=== PATIENT | female | born 1945 | race Caucasian/White ===

== ENCOUNTER 2023-07-21 14:23 | Emergency (ER) | payer MEDICARE, SELFPAY ==
[2023-07-21] VITALS (9 sets, daily range): BP systolic 169–216; BP diastolic 79–101
[2023-07-21 16:11] LABS: % Basophils 0.3 % (0-2); % Eosinophils 1.1 % (0-6); % Immature Granulocytes 0.3 % (0-0.5); % Lymphocytes 22.9 % (20.5-51.1); % Monocytes 8.4 % (1.7-9.3); Absolute Eosinophils 0.1 10^3/uL (0-0.7); Absolute Lymphocytes 1.5 10^3/uL (1.2-3.4); Absolute Monocytes 0.6 10^3/uL (0.1-0.6); Absolute Neutrophils 4.4 10^3/uL (1.4-6.5); Hematocrit 32.8 % (37.0-47.0); Hemoglobin 11.7 g/dL (12.0-16.0); Mean Corp Hgb Conc. 35.7 g/dL (33.0-37.0); Mean Corpuscular Volume 86.8 fL (81.0-99.0); Mean Platelet Volume 10.3 fL (7.4-10.4); Nucleated Red Blood Cells % 0 %; Platelet Count 213 10^3/uL (130-400); Red Blood Cell Count 3.78 10^6/uL (4.20-5.40); Red Cell Dist. Width 12.5 % (11.5-14.5); White Blood Cell Count 6.6 10^3/uL (4.8-10.8)
[2023-07-21 16:23] LABS: ALT (SGPT) 19 U/L (0-35); AST (SGOT) 32 U/L (14-36); Albumin 4.1 g/dl (3.5-5.0); Alkaline Phosphatase 76 U/L (38-126); Blood Urea Nitrogen 16 mg/dl (7-17); Calcium 9.3 mg/dl (8.4-10.2); Carbon Dioxide 24 mmol/L (22-30); Chloride 103 mmol/L (98-107); Glucose 90 mg/dl (70-99); Lipase 79 U/L (23-300); Potassium 3.8 mmol/L (3.5-5.1); Sodium 132 mmol/L (135-145); Total Bilirubin 0.7 mg/dl (0.2-1.3); Total Protein 6.9 g/dl (6.3-8.2); eGFR > 60.00
[2023-07-21 16:38] LABS: Troponin I < 0.012 ng/ml
[2023-07-21] MEDS: MORPHINE SULFATE 2 MG IV (16:55)
[2023-07-21] MEDS: MAALOX 40 PO (16:55)
[2023-07-21] MEDS: PROTONIX IV 40 MG IV (16:56)
--- NOTE | 2023-07-21 17:10 | ED.GENMED ---
History of Present Illness
<Tayler Rogel PA-C - Last Filed: 07/23/23 14:55>
General
Chief Complaint: Abdominal Symptoms
Source: patient
Exam Limitations: none
Time Seen by Provider: 07/21/23 15:58
Nursing documentation reviewed up to this point in time: agreed with
Travel History
Have you had any contact with someone who has COVID-19?: No
Do you have any symptoms of coronavirus? Fever > 100 degrees, chills, cough, shortness of breath, sore throat, loss of taste or smell, muscle aches, or headache?: No
History of Present Illness
History of Present Illness:
pt is a 77 y/o F with h/o afib s/p ablation, GERD, ulcers, htn
here with epigastric pain x 10 days which feels like a gnawing sharp feeling that she was attributing to reflux/gastritis. pt has had endoscopies in the past, last was 4 years ago and she says she has been told then that it was normal
pt has had some nausea but the pain is persistent and better with eating
sometimes the pain wraps around to her back
she was at yesterday and they told her she should have labs and see GI and maybe an US to eval for gb
there, her BP was normal
she sys she has previously had issues with her BPs in the past but not for a while
took her lisinopril today
exertion dosen't make her pain worse, no vomiting or black stool, no diarrhea
pt has seen cards int he past, ,has no known cardiac disease
pt says last night into today the pain is worse which is what brought her in.
Past History
<aTyler Rogel PA-C - Last Filed: 07/23/23 14:55>
Past History
ED Past Medical History: Arrthythmia (afib s/p ablation), GERD, HTN, Hypothyroidism and Other (PUD, hiatal hernia)
ED Past Surgical History: Cardiac (A. fib ablation), Gynecological (Tubal ligation), Tonsilectomy and Other (Hernia repair)
Patient has exhibited threatening behavior?: No
Social History
Tobacco: Non-smoker
Alcohol: Occasional
Drug: None
Personal:
Living: with family
Employment: Employed (Cleaning service)
Family History
Family History: Hypertension
Review of Systems
<Tayler Rogel PA-C - Last Filed: 07/23/23 14:55>
Review of Systems
Allergies reviewed?: Yes
All Other Systems: Not applicable
Phy Exam
<Tayler Rogel PA-C - Last Filed: 07/23/23 14:55>
Physical Exam
Physical Exam:
GENERAL: Alert , in no apparent distress
EYE: pupils equal and reactive
NECK: Supple
ENT: o/p clr, mmm.
CARDIAC: Regular rate and rhythm .
LUNGS: Clear breath sounds bilaterally, no acute respiratory distress, no wheezes/rales/rhonchi
ABDOMEN: Soft, no significant epigastric tendrness, neg cary's sign, no r/g, no cvat, normal bowel sounds
NEUROLOGICAL: Alert and oriented, no focal neuro deficits
SKIN: Warm and dry, skin intact.
MUSCULOSKELETAL: No edema, well perfused. neg elizabeth's sign
PSYCH: Normal and appropriate interaction.
Course
<Tayler Rogel PA-C - Last Filed: 07/23/23 14:55>
Orders/Labs/Results
Orders:
Orders
07/21/23 14:28
EKG [Electrocardiogram (*1)] Urgent
Reason for Study: Abdominal Pain
EKG- Treatment ONCE
07/21/23 16:04
CBC/With Diff [Complete Blood Count/With Diff] Urgent
CMP [Comprehensive Metabolic Panel] Urgent
Lipase Urgent
Troponin I Urgent
07/21/23 16:42
CT Chest/abd/pelvis Angio W/wo Urgent
Comment:
Reason For Exam: severe epigastric pain, ,backp ain, hypertensive
Mag Hydrox/Al Hydrox/Simeth [Maalox] 30 ml Phenobarb/Hyoscy/Atropine/Scop [] 10 ml PO NOW
Morphine Sulfate 2 mg IV NOW STA
Pantoprazole [Protonix IV] 40 mg IV NOW STA
07/21/23 16:51
Mag Hydrox/Al Hydrox/Simeth [Maalox] 30 ml .ROUTE .STK-MED ONE
Phenobarb/Hyoscy/Atropine/Scop [] 10 ml .ROUTE .STK-MED ONE
07/21/23 19:14
HydrALAZINE [Apresoline] 10 mg IV NOW STA
Abnormal Lab Results
07/21/23
16:04
RBC 3.78 L 10^6/uL
(4.20-5.40)
Hgb 11.7 L g/dL
(12.0-16.0)
Hct 32.8 L %
(37.0-47.0)
Sodium 132 L mmol/L
(135-145)
07/21/23 16:04
07/21/23 16:04
Vital Signs
Initial and Last Documented VS:
Initial Vital Signs
Temp Pulse Resp BP Pulse Ox
98.3 F 67 16 175/91 98
07/21/23 14:25 07/21/23 14:25 07/21/23 14:25 07/21/23 14:25 07/21/23 14:25
Last Documented Vital Signs
Temp Pulse Resp BP Pulse Ox
98.3 F 59 17 171/79 97
07/21/23 14:25 07/21/23 18:04 07/21/23 18:04 07/21/23 20:00 07/21/23 20:15
<Marquitacheikh Peterson, REGIONAL ENGAGEMENT CONSULTANT - Last Filed: 07/21/23 22:41>
Orders/Labs/Results
Orders:
Orders
07/21/23 14:28
EKG [Electrocardiogram (*1)] Urgent
Reason for Study: Abdominal Pain
EKG- Treatment ONCE
07/21/23 16:04
CBC/With Diff [Complete Blood Count/With Diff] Urgent
CMP [Comprehensive Metabolic Panel] Urgent
Lipase Urgent
Troponin I Urgent
07/21/23 16:42
CT Chest/abd/pelvis Angio W/wo Urgent
Comment:
Reason For Exam: severe epigastric pain, ,backp ain, hypertensive
Mag Hydrox/Al Hydrox/Simeth [Maalox] 30 ml Phenobarb/Hyoscy/Atropine/Scop [] 10 ml PO NOW
Morphine Sulfate 2 mg IV NOW STA
Pantoprazole [Protonix IV] 40 mg IV NOW STA
07/21/23 16:51
Mag Hydrox/Al Hydrox/Simeth [Maalox] 30 ml .ROUTE .STK-MED ONE
Phenobarb/Hyoscy/Atropine/Scop [] 10 ml .ROUTE .STK-MED ONE
07/21/23 19:14
HydrALAZINE [Apresoline] 10 mg IV NOW STA
Abnormal Lab Results
07/21/23
16:04
RBC 3.78 L 10^6/uL
(4.20-5.40)
Hgb 11.7 L g/dL
(12.0-16.0)
Hct 32.8 L %
(37.0-47.0)
Sodium 132 L mmol/L
(135-145)
07/21/23 16:04
07/21/23 16:04
Vital Signs
Initial and Last Documented VS:
Initial Vital Signs
Temp Pulse Resp BP Pulse Ox
98.3 F 67 16 175/91 98
07/21/23 14:25 07/21/23 14:25 07/21/23 14:25 07/21/23 14:25 07/21/23 14:25
Last Documented Vital Signs
Temp Pulse Resp BP Pulse Ox
98.3 F 59 17 171/79 97
07/21/23 14:25 07/21/23 18:04 07/21/23 18:04 07/21/23 20:00 07/21/23 20:15
<Tayler Rogel PA-C - Last Filed: 07/23/23 14:55>
MDM/Problems Addressed
Differential Diagnosis Includes:
Dissection, gastritis, peptic ulcer disease, ACS
MDM/Problems Addressed:
77-year-old female with history of hypertension presents with epigastric pain for the last 10 days, it is a gnawing pain that sometimes goes through to her back. She feels better with eating. She has had previous endoscopies but not recently that
she says was actually normal. She does not recall that she had diagnosis of a peptic ulcer before. Patient has tried some tfzn-wnd-gorojdu remedies without relief. She took her lisinopril today but she is hypertensive on arrival, 200/100. Her
EKG is nonischemic but does have a subtle ST nonspecific biphasic T wave in V2 new from previous. Patient has a negative troponin effectively ruling out ACS given her symptoms have been ongoing for days. Because of her hypertension and pain she
had a dissection study. 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 The recommendation is to have this surveilled in 6 to 12 months. She will be given a vascular for follow-up.
In the meantime patient did have a brief reprieve of her blood pressure being down to 170/70 but then it rebounded to 210/90 again. Patient will be given a dose of hydralazine. If she does not improve will be admitted for hypertensive urgency.
If it does improve she could be discharged. Protonix daily, GI follow-up. No concern for bleeding ulcer, her hemoglobin is 7.7 and her BUN is normal. She is not reporting any black stool. Signed out to Gabby peterson pending repeat blood pressure
<Marquita Peterson REGIONAL ENGAGEMENT CONSULTANT - Last Filed: 07/21/23 22:41>
MDM/Problems Addressed
MDM/Problems Addressed:
77-year-old female with history of hypertension presents with epigastric pain for the last 10 days, it is a gnawing pain that sometimes goes through to her back. She feels better with eating. She has had previous endoscopies but not recently that
she says was actually normal. She does not recall that she had diagnosis of a peptic ulcer before. Patient has tried some hdnd-krn-ulvtepx remedies without relief. She took her lisinopril today but she is hypertensive on arrival, 200/100. Her
EKG is nonischemic but does have a subtle ST nonspecific biphasic T wave in V2 new from previous. Patient has a negative troponin effectively ruling out ACS given her symptoms have been ongoing for days. Because of her hypertension and pain she
had a dissection study. 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 The recommendation is to have this surveilled in 6 to 12 months. She will be given a vascular for follow-up.
In the meantime patient did have a brief reprieve of her blood pressure being down to 170/70 but then it rebounded to 210/90 again. Patient will be given a dose of hydralazine. If she does not improve will be admitted for hypertensive urgency.
If it does improve she could be discharged. Protonix daily, GI follow-up. No concern for bleeding ulcer, her hemoglobin is 7.7 and her BUN is normal. She is not reporting any black stool. Signed out to Gabby peterson pending repeat blood pressure
07/21/20232027 PM
Most recent blood pressure was 169/83, and 171/79, still high but improving. She will f/u with PCP tomorrow
<Marquita Peterson REGIONAL ENGAGEMENT CONSULTANT - Last Filed: 07/21/23 22:41>
*Critical Care Note
Total Time (30-74mins, 75-104mins- exclusive of procedures): Not Applicable
ED Attending Note
<Tayler Rogel PA-C - Last Filed: 07/23/23 14:55>
-
Portions of this chart may have been created with voice recognition software.� Occasional wrong word or��sound alike� substitutions may have occurred due to the inherent limitations of voice recognition software.
Discharge Plan
Departure
Patient Disposition: Home (Routine Discharge)
Date of Disposition: 07/21/23
Time of Disposition: 20:31
Patient with high blood pressure during this ER visit?: Yes
Condition: Fair
Covid-19: Not Applicable
Discharge Problem:
Abdominal pain, epigastric, Hypertension
Instructions: Abdominal Pain, Adult ED, BLOOD PRESSURE
Prescriptions:
New
pantoprazole [Protonix] 20 mg tablet,delayed release (DR/EC)
20 mg PO DAILY Qty: 20 0RF
No Action
levothyroxine 75 MCG tablet
75 mcg PO DAILY
B-complex with vitamin C 1 CAPLET tablet
1 cap PO DAILY
lisinopril 10 MG tablet
20 mg PO DAILY
ibuprofen 200 MG tablet
200 mg PO DAILYPRN PRN (Reason: MILD PAIN)
biotin 1 mg Capsule
1 mg PO DAILY
Referrals:
Jackie Sarah MD [Active] - Follow up in 5-7 days (gi)
Luis Sanders III, MD [Active] - Follow up in 1 week (vascular for follow up of the renal artery aneurysm)
Jong Felix MD [Family Provider] -
Activity Restrictions/Additional Instructions:
Were not sure the cause of your abdominal pain but it could be an ulcer. Take Protonix 20 mg on an empty stomach 45 minutes before eating or drinking in the morning, you can take it with a large glass of water.
Follow-up with GI, call for an appointment.
Return for severe worsening of epigastric pain, black stool, vomiting, fevers or chills, chest pain or shortness of breath. Your blood pressure was extremely high today. We gave you a dose of medication to help with this. Please be sure to
follow-up with your family doctor tomorrow regarding your blood pressure. Return for any concerns. Incidentally on your CAT scan you had a small left renal artery aneurysm which measures 1.2 cm x 0.9 cm x 0.9 cm. The recommendation is to have
this followed up in 6 to 12 months with a repeat CAT scan. Please call the vascular surgeon to follow-up with him and he will take care of that. Return for any concerns
Interventions
Interventions:
*Risk Screen - Suicide Last Done: 07/21/23 14:25
*General Assessment Last Done: 07/21/23 14:25
*Neglect/Abuse Screening Last Done: 07/21/23 14:25
ED- Fall Risk Assessment Last Done: 07/21/23 15:51
*Nursing Disposition Last Done: 07/21/23 20:57
LR-Xuoomn-Tddhlnxxky Assessment Last Done: 07/21/23 15:51
Discharge Date and Time
Discharge Date/Time: 07/21/23 20:58
[2023-07-21] MEDS: APRESOLINE 10 MG IV (19:36)
== END 2023-07-21 20:58 | disposition home or self-care (01) ==
LOC: EMR 14:23
PROVIDERS: Physician Assistant; EMERGENCY PHYSICIAN Emergency Medicine; FAMILY PHYSICIAN Family Medicine
DX: R10.13 Epigastric pain (principal); R11.0 Nausea; M54.9 Dorsalgia, unspecified; I10 Essential (primary) hypertension; I72.2 Aneurysm of renal artery; I48.91 Unspecified atrial fibrillation; K21.9 Gastro-esophageal reflux disease without esophagitis; E03.9 Hypothyroidism, unspecified; H40.9 Unspecified glaucoma; Z85.828 Personal history of other malignant neoplasm of skin; Z88.1 Allergy status to other antibiotic agents; Z88.2 Allergy status to sulfonamides
CPT/HCPCS: 99285; 96374; 96375 ×2; 71275; 74174; 80053; 83690; 84484; 85025; 93005; Q9967

== ENCOUNTER → 2023-08-14 15:56 | Outpatient (REF) | payer MEDICARE, SELFPAY | LOC: WDC 15:56 | PROVIDERS: ATTENDING PHYSICIAN Nurse Practitioner Family | DX: Z12.31 Encounter for screening mammogram for malignant neoplasm of breast (principal) | CPT/HCPCS: 77063; 77067 ==

== ENCOUNTER → 2023-09-16 06:34 | Day surgery (SDC) | payer MEDICARE, SELFPAY | LOC: GI 06:34 | PROVIDERS: ATTENDING PHYSICIAN Internal Medicine Gastroenterology | DX: K21.00 Gastro-esophageal reflux disease with esophagitis, without bleeding (principal); K44.9 Diaphragmatic hernia without obstruction or gangrene; K31.89 Other diseases of stomach and duodenum; K31.7 Polyp of stomach and duodenum; R10.13 Epigastric pain | CPT/HCPCS: 43239; 88305; 88342 ==

== ENCOUNTER 2023-11-03 10:35 | Emergency (ER) | payer MEDICARE, SELFPAY ==
[2023-11-03 10:39] VITALS: BP 141/74
[2023-11-03 11:21] LABS: % Basophils 0.4 % (0-2); % Eosinophils 1.5 % (0-6); % Immature Granulocytes 0.2 % (0-0.5); % Monocytes 9.4 % (1.7-9.3); % Neutrophils 65.5 % (42.2-75.2); Absolute Eosinophils 0.1 10^3/uL (0-0.7); Absolute Lymphocytes 1.2 10^3/uL (1.2-3.4); Absolute Monocytes 0.5 10^3/uL (0.1-0.6); Absolute Neutrophils 3.4 10^3/uL (1.4-6.5); Hematocrit 34.3 % (37.0-47.0); Hemoglobin 12.1 g/dL (12.0-16.0); Mean Corp Hgb Conc. 35.3 g/dL (33.0-37.0); Mean Corpuscular Hgb 30.6 pg (27.0-31.0); Mean Corpuscular Volume 86.8 fL (81.0-99.0); Mean Platelet Volume 10.9 fL (7.4-10.4); Nucleated Red Blood Cells % 0 %; Platelet Count 214 10^3/uL (130-400); Red Blood Cell Count 3.95 10^6/uL (4.20-5.40); Red Cell Dist. Width 12.7 % (11.5-14.5); White Blood Cell Count 5.2 10^3/uL (4.8-10.8)
[2023-11-03 11:24] LABS: Urine Albumin Negative (Neg - Trace); Urine Bilirubin Negative (Negative); Urine Character Clear (Clear); Urine Color Yellow; Urine Glucose Negative (Negative); Urine Ketone Negative (Negative); Urine Leukocyte Negative (Negative); Urine Nitrite Negative (Negative); Urine Occult Blood Negative (Negative); Urine Specific Gravity 1.015 (<1.030); Urine Urobilinogen Negative (Neg - 1+)
[2023-11-03 11:59] LABS: ALT (SGPT) 19 U/L (0-35); AST (SGOT) 33 U/L (14-36); Albumin 4.1 g/dl (3.5-5.0); Alkaline Phosphatase 56 U/L (38-126); Blood Urea Nitrogen 21 mg/dl (7-17); Calcium 10.2 mg/dl (8.4-10.2); Carbon Dioxide 23 mmol/L (22-30); Chloride 101 mmol/L (98-107); Glucose 107 mg/dl (70-99); Potassium 4.2 mmol/L (3.5-5.1); Sodium 132 mmol/L (135-145); Total Bilirubin 0.7 mg/dl (0.2-1.3); eGFR > 60.00
--- NOTE | 2023-11-03 12:26 | ED.GENMED ---
History of Present Illness
<Elizabeth Cerda PA-C - Last Filed: 11/03/23 14:43>
General
Chief Complaint: Urinary Symptoms
Source: patient
Exam Limitations: none
Time Seen by Provider: 11/03/23 12:16
Nursing documentation reviewed up to this point in time: agreed with
Travel History
Have you had any contact with someone who has COVID-19?: No
Do you have any symptoms of coronavirus? Fever > 100 degrees, chills, cough, shortness of breath, sore throat, loss of taste or smell, muscle aches, or headache?: No
History of Present Illness
History of Present Illness:
77-year-old G3, P3 female with a history of recurrent UTIs, A-fib, hypertension, hypothyroidism presenting emergency department today with concerns of vaginal pain and clearish white vaginal discharge for the past few weeks. She also has burning
with urination associated with this. Patient denies any itching, any abdominal pain, any pelvic pain, any fevers or chills, any vomiting. Patient states that she originally saw her urologist for this issue and they did do an external physical exam
and started her on a course of topical estrogen therapy. Patient states that her symptoms got significantly worse after this. Saw her primary who did a urinalysis which at the time was positive for urinary tract infection and she was treated for
this with an antibiotic. Patient that despite this, symptoms persisted and patient then saw urgent care in which she had another pelvic exam done and patient was tested for BV and is still waiting the results. She was started on a course of
topical metronidazole which she has been on for the past few days. Patient states her symptoms still do not improve. Of note, patient states that her symptoms all started after inserting a toy into her vagina. She only used this once. Patient
denies any chance of sexually transmitted infection.
Past History
<Elizabeth Cerda PA-C - Last Filed: 11/03/23 14:43>
Past History
ED Past Medical History: Arrthythmia (afib s/p ablation), GERD, HTN, Hypothyroidism and Other (PUD, hiatal hernia)
ED Past Surgical History: Cardiac (A. fib ablation), Gynecological (Tubal ligation), Tonsilectomy and Other (Hernia repair)
Patient has exhibited threatening behavior?: No
Social History
Tobacco: Non-smoker
Alcohol: Occasional
Drug: None
Personal:
Living: with family
Employment: Employed ([employer] service)
Family History
Family History: Hypertension
Review of Systems
<BONI Callaway Last Filed: 11/03/23 14:43>
Review of Systems
All Other Systems: ROS reviewed and negative except as documented in HPI and ROS
Phy Exam
<BONI Callaway Last Filed: 11/03/23 14:43>
Physical Exam
Physical Exam:
General: Patient is well appearing and in no acute distress; non-toxic
Skin: Warm and dry, no rashes or lesions
Head: Normocephalic, atraumatic
Eyes: Sclera non-icteric. EOMs intact.
Cardiac: Regular rate
Peripheral Vascular: No lower extremity swelling or edema
Pulm: Normal respiratory effort
Abdomen: No abdominal tenderness, no adnexal masses, no adnexal tenderness to palpation
Genitourinary: Mild vulvar erythema noted with no significant swelling, no lesions or excoriations on the external genitalia. Thick white discharge noted at the vaginal introitus. Vaginal mucosa pink and moist with no ulcerations or lesions,
cervix visualized with no cervical lesions or cervical motion tenderness.
Neuro: CN II-XII intact, no focal neurologic deficits.
Psychiatric: Appropriate mood and affect.
Course
<BONI Callaway Last Filed: 11/03/23 14:43>
Orders/Labs/Results
Orders:
Orders
11/03/23 10:43
Complete Blood Count/With Diff Urgent
Comprehensive Metabolic Panel Urgent
11/03/23 11:05
Urinalysis Reflex To Culture Urgent
Date Specimen was Collected: 11/03/23
Time Specimen was Collected: 10:41
11/03/23 13:52
Loretta/Yeast Culture Urgent
LYLE Source: Vagina
Specimen Description:
Date Specimen was Collected: 11/03/23
Time Specimen was Collected: 13:51
Genital Culture Urgent
LYLE Source: Vagina
Specimen Description:
Date Specimen was Collected: 11/03/23
Time Specimen was Collected: 13:51
Abnormal Lab Results
11/03/23
10:43
RBC 3.95 L 10^6/uL
(4.20-5.40)
Hct 34.3 L %
(37.0-47.0)
MPV 10.9 H fL
(7.4-10.4)
Monocytes % 9.4 H %
(1.7-9.3)
Sodium 132 L mmol/L
(135-145)
BUN 21 H mg/dl
(7-17)
Glucose 107 H mg/dl
(70-99)
11/03/23 10:43
11/03/23 10:43
Vital Signs
Initial and Last Documented VS:
Initial Vital Signs
Temp Pulse Resp BP Pulse Ox
98.2 F 66 16 141/74 99
11/03/23 10:39 11/03/23 10:39 11/03/23 10:39 11/03/23 10:39 11/03/23 10:39
Last Documented Vital Signs
Temp Pulse Resp BP Pulse Ox
98.2 F 76 16 181/91 99
11/03/23 10:39 11/03/23 14:48 11/03/23 10:39 11/03/23 14:48 11/03/23 10:39
<Jose Franco MD - Last Filed: 11/03/23 15:39>
Orders/Labs/Results
Orders:
Orders
11/03/23 10:43
Complete Blood Count/With Diff Urgent
Comprehensive Metabolic Panel Urgent
11/03/23 11:05
Urinalysis Reflex To Culture Urgent
Date Specimen was Collected: 11/03/23
Time Specimen was Collected: 10:41
11/03/23 13:52
Loretta/Yeast Culture Urgent
LYLE Source: Vagina
Specimen Description:
Date Specimen was Collected: 11/03/23
Time Specimen was Collected: 13:51
Genital Culture Urgent
LYLE Source: Vagina
Specimen Description:
Date Specimen was Collected: 11/03/23
Time Specimen was Collected: 13:51
Abnormal Lab Results
11/03/23
10:43
RBC 3.95 L 10^6/uL
(4.20-5.40)
Hct 34.3 L %
(37.0-47.0)
MPV 10.9 H fL
(7.4-10.4)
Monocytes % 9.4 H %
(1.7-9.3)
Sodium 132 L mmol/L
(135-145)
BUN 21 H mg/dl
(7-17)
Glucose 107 H mg/dl
(70-99)
11/03/23 10:43
11/03/23 10:43
Vital Signs
Initial and Last Documented VS:
Initial Vital Signs
Temp Pulse Resp BP Pulse Ox
98.2 F 66 16 141/74 99
11/03/23 10:39 11/03/23 10:39 11/03/23 10:39 11/03/23 10:39 11/03/23 10:39
Last Documented Vital Signs
Temp Pulse Resp BP Pulse Ox
98.2 F 76 16 181/91 99
11/03/23 10:39 11/03/23 14:48 11/03/23 10:39 11/03/23 14:48 11/03/23 10:39
<Elizabeth Cerda PA-C - Last Filed: 11/03/23 14:43>
MDM/Problems Addressed
Differential Diagnosis Includes:
vaginal candidiasis, contact dermatitis, allergic dermatitis, atrophic vaginitis, lichen sclerosis
MDM/Problems Addressed:
Vaginal pain and discharge
Chronic conditions affecting care:
Atrial fibrillation, skin cancer, recurrent UTIs
<Elizabeth Cerda PA-C - Last Filed: 11/03/23 14:43>
*Pulse Oximetry
Patient hypoxic: no
*Critical Care Note
Total Time (30-74mins, 75-104mins- exclusive of procedures): Not Applicable
Data Reviewed
Review of Other/Old Records Reveals: Records (Reviewed ER physician documentation from 07/21/2023, ER physician documentation from 07/24/2021)
Source: patient and records
<Elizabeth Cerda PA-C - Last Filed: 11/03/23 14:43>
Patient Management
Escalation/DeEscalation of care consider admission/obs:
77-year-old G3, P3 female with a history of recurrent UTIs, A-fib, hypertension, hypothyroidism presenting emergency department today with concerns of vaginal pain and clearish white vaginal discharge for the past few weeks. Patient has seen
multiple providers for this issue and has been on various regimens including 1 dose of oral Diflucan, intravaginal metronidazole, and an oral antibiotic. Patient is waiting on vaginal swab results from urgent care. Patient's PLUMBER ASSISTANT provider retired
and she currently does not have a PLUMBER ASSISTANT. She has no pelvic pain, abdominal pain, nausea, vomiting, fevers. On exam, there is mild vulvar erythema but no significant findings to suggest lichen sclerosus or possibly a contact dermatitis. Discharge
consistent with possible infectious etiology. Vaginal culture was obtained. Patient will be called with the results. Advised patient to start taking intravaginal Monistat and advised applying it externally as well. She will also repeat dose of
Diflucan 10 days. I did reach out to PLUMBER ASSISTANT on-call who will see what she can do in terms of getting patient in sooner for follow up appointment. Return precautions given. All patient questions answered. Stable for discharge.
ED Attending Note
<Elizabeth Cerda PA-C - Last Filed: 11/03/23 14:43>
-
Portions of this chart may have been created with voice recognition software.� Occasional wrong word or��sound alike� substitutions may have occurred due to the inherent limitations of voice recognition software.
<Jose Franco MD - Last Filed: 11/03/23 15:39>
ED Attending Note
Patient seen and examined by attending physician: Yes
I performed the substantive portion of visit, reviewed & personally made and approve the management plan that is documented in note by myself or TOMMY.: Yes
ED Attending Note:
Patient complaining of vaginal burning. Has seen multiple physicians. Has tried Diflucan, Flagyl ointment. Tried steroid cream for possible atopic vaginitis. No abdominal pain some pain with urination but no frequency. No fever or chills. On
exam patient is nontoxic in no distress. Abdomen is soft and nontender. Vaginal exam shows no obvious irritation but a slight white discharge. Manual exam was done by our nurse practitioner that was unremarkable.
No obvious explanation for this vaginal irritation. Will try Diflucan and Monistat and follow-up.
Discharge Plan
Departure
Patient Disposition: Home (Routine Discharge)
Date of Disposition: 11/03/23
Time of Disposition: 14:21
Patient with high blood pressure during this ER visit?: Yes
Condition: Good
Discharge Problem:
Vaginitis
Instructions: Vaginal discharge, Vaginitis in adults, BLOOD PRESSURE
Prescriptions:
No Action
levothyroxine 75 MCG tablet
75 mcg PO DAILY
B-complex with vitamin C 1 CAPLET tablet
1 cap PO DAILY
lisinopril 10 MG tablet
20 mg PO DAILY
ibuprofen 200 MG tablet
200 mg PO DAILYPRN PRN (Reason: MILD PAIN)
biotin 1 mg Capsule
1 mg PO DAILY
pantoprazole [Protonix] 20 mg tablet,delayed release (DR/EC)
20 mg PO DAILY Qty: 20 0RF
Referrals:
Jong Felix MD [Family Provider] -
Melissa Mallory MD [Active] - Call in 1-3 days for appt
Activity Restrictions/Additional Instructions:
Please take next dose of Diflucan in 10 days.
Please purchase monistat cream 2% over the counter. Please insert 1 applicatorful once daily at bedtme for 7 days. You can also apply this externally twice daily for 7 days as needed for itching and irritation.
PLEASE RETURN TO THE EMERGENCY DEPARTMENT SHOULD YOU DEVELOP FEVERS OR CHILLS, ABDOMINAL PAIN, PELVIC PAIN, NAUSEA OR VOMITING.
Interventions
Interventions:
*Risk Screen - Suicide Last Done: 11/03/23 14:46
*General Assessment Last Done: 11/03/23 14:46
*Neglect/Abuse Screening Last Done: 11/03/23 14:46
*Nursing Disposition Last Done: 11/03/23 14:48
ED-Female Genitourinary Assessment Last Done: 11/03/23 14:46
Discharge Date and Time
Discharge Date/Time: 11/03/23 14:48
Print Language: ICELANDIC
[2023-11-03 14:48] VITALS: BP 181/91
== END 2023-11-03 14:48 | disposition home or self-care (01) ==
LOC: EMR 10:35
PROVIDERS: Emergency Medicine; EMERGENCY PHYSICIAN Emergency Medicine; FAMILY PHYSICIAN Family Medicine
DX: N76.0 Acute vaginitis (principal); I10 Essential (primary) hypertension; I48.91 Unspecified atrial fibrillation; E03.9 Hypothyroidism, unspecified
CPT/HCPCS: 99283; 80053; 81003; 85025; 87070; 87102

== ENCOUNTER 2023-12-21 10:13 | Outpatient (RCR) | payer MEDICARE, SELFPAY | END 2023-12-21 23:59 | disposition home or self-care (01) | LOC: RPT 10:13 | PROVIDERS: ATTENDING PHYSICIAN Obstetrics & Gynecology; FAMILY PHYSICIAN Family Medicine | DX: R10.2 Pelvic and perineal pain (principal); M62.89 Other specified disorders of muscle; N39.3 Stress incontinence (female) (male) | CPT/HCPCS: 97140; 97163; 97530 ==

== ENCOUNTER 2024-01-05 10:03 | Outpatient (RCR) | payer MEDICARE, SELFPAY | END 2024-01-05 23:59 | disposition home or self-care (01) | LOC: RPT 10:03 | PROVIDERS: ATTENDING PHYSICIAN Obstetrics & Gynecology; FAMILY PHYSICIAN Family Medicine | DX: N39.3 Stress incontinence (female) (male) (principal); R10.2 Pelvic and perineal pain; M62.89 Other specified disorders of muscle; Z73.6 Limitation of activities due to disability | CPT/HCPCS: 97140; 97530 ==

== ENCOUNTER 2024-02-16 14:54 | Outpatient (RCR) | payer MEDICARE, SELFPAY | END 2024-02-16 16:26 | disposition home or self-care (01) | LOC: RPT 14:54 | PROVIDERS: ATTENDING PHYSICIAN Obstetrics & Gynecology; FAMILY PHYSICIAN Family Medicine | DX: R10.2 Pelvic and perineal pain (principal); M62.89 Other specified disorders of muscle; N39.3 Stress incontinence (female) (male); Z73.6 Limitation of activities due to disability | CPT/HCPCS: 97140; 97530 ==

== ENCOUNTER → 2024-03-10 07:10 | Outpatient (REF) | payer MEDICARE, SELFPAY | LOC: RCS 07:10 | PROVIDERS: ATTENDING PHYSICIAN Internal Medicine Cardiovascular Disease; FAMILY PHYSICIAN Family Medicine | DX: I34.0 Nonrheumatic mitral (valve) insufficiency (principal) | CPT/HCPCS: 93306 ==

== ENCOUNTER → 2024-08-15 15:20 | Outpatient (REF) | payer MEDICARE, SELFPAY | LOC: WDC 15:20 | PROVIDERS: ATTENDING PHYSICIAN Family Medicine | DX: Z12.31 Encounter for screening mammogram for malignant neoplasm of breast (principal) | CPT/HCPCS: 77063; 77067 ==

== ENCOUNTER → 2024-08-19 17:03 | Outpatient (REF) | payer MEDICARE, SELFPAY ==
[2024-08-19 18:08] LABS: Blood Urea Nitrogen 19 mg/dl (7-17); Carbon Dioxide 25 mmol/L (22-30); Chloride 99 mmol/L (98-107); Glucose 91 mg/dl (70-99); Sodium 133 mmol/L (135-145); eGFR > 60.00
== END ==
LOC: RAD 17:03
PROVIDERS: ATTENDING PHYSICIAN Surgery Vascular Surgery; FAMILY PHYSICIAN Family Medicine
DX: I72.2 Aneurysm of renal artery (principal)
CPT/HCPCS: 36415; 80048

== ENCOUNTER → 2024-08-29 08:46 | Outpatient (REF) | payer MEDICARE, SELFPAY | LOC: RAD 08:46 | PROVIDERS: ATTENDING PHYSICIAN Podiatrist; FAMILY PHYSICIAN Family Medicine | DX: N95.9 Unspecified menopausal and perimenopausal disorder (principal) | CPT/HCPCS: 77080 ==

== ENCOUNTER 2024-10-17 18:01 | Emergency (ER) | payer MEDICARE, SELFPAY ==
[2024-10-17 18:04] VITALS: BP 144/82
[2024-10-17 19:22] VITALS: BMI 23.6
--- NOTE | 2024-10-17 19:39 | ED.SKININJ ---
HPI-Injury
General
Chief Complaint: Bite
Source: patient
Exam Limitations: none
Time Seen by Provider: 10/17/24 19:18
Nursing documentation reviewed up to this point in time: agreed with
History of Present Illness-Injury
Is this injury a work related problem?: No
Is pt an associate of [facility]?: No
Initial Injury comments:
Patient states her cat caught a mouse this AM. Mouse was still alive so she picked it up and released it into her yard. As she was releasing mouse, the mouse bit her on her right distal left 5th finger. States she cleaned it well after. She
spoke with PCP today and he advised her to come to ED for rabies series. She states she needs Tdap. Brought self to ED for eval.
Past History
Past History
ED Past Medical History: Arrthythmia (afib s/p ablation), GERD, HTN, Hypothyroidism and Other (PUD, hiatal hernia)
ED Past Surgical History: Cardiac (A. fib ablation), Gynecological (Tubal ligation), Tonsilectomy and Other (Hernia repair)
Patient has exhibited threatening behavior?: No
Social History
Tobacco: Non-smoker
Alcohol: Occasional
Drug: None
Personal:
Living: with family
Employment: Employed (Cleaning service)
Family History
Family History: Hypertension
Review of Systems
Review of Systems
Allergies reviewed?: Yes
All Other Systems: ROS reviewed and negative except as documented in HPI and ROS
Constitutional: Reports no symptoms
EENT: Reports no symptoms
Respiratory: Reports no symptoms
Cardiac: Reports no symptoms
ABD/GI: Reports no symptoms
Musculoskeletal: Reports no symptoms
Skin: Reports other (mouse bite left distal 5th finger)
Neurological: Reports no symptoms
Psychiatric: Reports no symptoms
Skin Exam
Bite
Left Distal Fifth Finger:
Type: animal (mouse)
Skin has: puncture wounds
Surrounding area around bite has: no evidence of erythema
Distal skin color and temperature: normal-warm & good color
Normal distal neurovascular exam: Yes
Phy Exam
General Physical Exam
General Presentation: well appearing and no apparent distress
General age: appears stated age
General Skin: warm and dry
General Habitus: normal
Musculoskeletal Exam
Musculoskeletal Exam: full ROM and neuro vasc intact
Skin Exam
Skin Exam: normal color, warm/dry and no rash
Psychiatric Exam
Psychiatric Exam: normal mood/affect
Course
Orders/Labs/Results
Orders:
Orders
10/17/24 19:21
Tetanus/Diphth/Acelpertussis [Adacel] 0.5 ml IM .ONCE ONE
10/17/24 19:26
Penicillin V Potassium [Pen Vk] 500 mg PO NOW STA
Vital Signs
Initial and Last Documented VS:
Initial Vital Signs
Temp Pulse Resp BP Pulse Ox
98.0 F 67 20 144/82 98
10/17/24 18:04 10/17/24 18:04 10/17/24 18:04 10/17/24 18:04 10/17/24 18:04
Last Documented Vital Signs
Temp Pulse Resp BP Pulse Ox
98.0 F 67 20 144/82 98
10/17/24 18:04 10/17/24 18:04 10/17/24 18:04 10/17/24 18:04 10/17/24 18:04
*Critical Care Note
Total Time (30-74mins, 75-104mins- exclusive of procedures): Not Applicable
Update Note
Update Note:
Patient to ED for eval of mouse bite to left distal 5th finger. Bite occurred this AM. No visible wounds. NO redness or swelling, she denies pain. Mice are not known to be carriers of rabies, rabies immuglobulin and vaccine not indicated. Tdap
given. Placed on Pen VK prophylactically. She is discharged home, will follow up with PCP. given instructions on s/s to return to ED and she is agreeable to plan.
ED Attending Note
-
Portions of this chart may have been created with voice recognition software.� Occasional wrong word or��sound alike� substitutions may have occurred due to the inherent limitations of voice recognition software.
Discharge Plan
Departure
Patient Disposition: Home (Routine Discharge)
Date of Disposition: 10/17/24
Time of Disposition: :28
Patient with high blood pressure during this ER visit?: No
Condition: Good
Covid-19: Not Applicable
Discharge Problem:
Bitten by mouse
Instructions: Animal and human bites, Wound Care (DC)
Prescriptions:
New
penicillin V potassium 500 mg tablet
500 mg PO Q6H 5 Days Qty: 20 0RF
No Action
levothyroxine 75 MCG tablet
75 mcg PO DAILY
B-complex with vitamin C 1 CAPLET tablet
1 cap PO DAILY
lisinopril 10 MG tablet
20 mg PO DAILY
ibuprofen 200 MG tablet
200 mg PO DAILYPRN PRN (Reason: MILD PAIN)
biotin 1 mg Capsule
1 mg PO DAILY
pantoprazole [Protonix] 20 mg tablet,delayed release (DR/EC)
20 mg PO DAILY Qty: 20 0RF
Referrals:
Jong Felix MD [Family Provider] - Follow up in 2-3 days
Activity Restrictions/Additional Instructions:
Return to the emergency department immediately for fever/chills, increasing pain, redness, swelling to your finger, or any discharge from bite site.
Interventions
Interventions:
*Risk Screen - Suicide Last Done: 10/17/24 19:25
*General Assessment Last Done: 10/17/24 18:04
*Neglect/Abuse Screening Last Done: 10/17/24 19:25
ED-Skin Assessment Last Done: 05/19/25 19:25
Discharge Date and Time
Print Language: KHMER
[2024-10-17] MEDS: PEN VK 500 MG PO (19:48)
[2024-10-17] MEDS: ADACEL 0.5 ML IM (19:49)
== END 2024-10-17 19:54 | disposition home or self-care (01) ==
LOC: EMR 18:01
PROVIDERS: EMERGENCY PHYSICIAN Student in an Organized Health Care Education/Training Program; FAMILY PHYSICIAN Family Medicine
DX: S61.237A Puncture wound without foreign body of left little finger without damage to nail, initial encounter (principal); W53.01XA Bitten by mouse, initial encounter; Z23 Encounter for immunization; E03.9 Hypothyroidism, unspecified; I10 Essential (primary) hypertension; I48.91 Unspecified atrial fibrillation; Z82.49 Family history of ischemic heart disease and other diseases of the circulatory system; Z87.11 Personal history of peptic ulcer disease; Z98.51 Tubal ligation status
CPT/HCPCS: 99282; 90471; 90715

== ENCOUNTER 2025-01-15 21:06 | Emergency (ER) | payer MEDICARE, SELFPAY ==
[2025-01-15 21:14] VITALS: BP 158/79
--- NOTE | 2025-01-16 00:04 | ED.GENMED ---
History of Present Illness
General
Chief Complaint: Skin Problem
Source: patient
Time Seen by Provider: 01/15/25 23:37
History of Present Illness
History of Present Illness:
79-year-old female presenting to the emergency department for evaluation of right lower leg wound that was sutured at the local [facility] urgent care earlier in the week after she sustained an accidental fall while getting out of a pool, had
been started on Keflex and finished the Keflex today but states that she started noticed a little bit of erythema around the edges of the wound. Patient states that the wound itself is similarly painful and not much different than the last few
days. Denies any fevers, denies any drainage to the affected area. She notes that she was due for suture removal next Thursday. She is without any other concerns.
Past History
Past History
ED Past Medical History: Arrthythmia (afib s/p ablation), GERD, HTN, Hypothyroidism and Other (PUD, hiatal hernia)
ED Past Surgical History: Cardiac (A. fib ablation), Gynecological (Tubal ligation), Tonsilectomy and Other (Hernia repair)
Patient has exhibited threatening behavior?: No
Social History
Tobacco: Non-smoker
Alcohol: Occasional
Drug: None
Personal:
Living: with family
Employment: Employed (Cleaning service)
Family History
Family History: Hypertension
Review of Systems
Review of Systems
All Other Systems: ROS reviewed and negative except as documented in HPI and ROS
Phy Exam
Physical Exam
Physical Exam:
GENERAL: Alert , in no apparent distress
EYE: conjunctiva clear
Head: Normocephalic atraumatic
NECK: Supple,
ENT: mmm.
LUNGS: no acute respiratory distress
NEUROLOGICAL: Alert and oriented
SKIN: Warm and dry, there is a 6 cm curvilinear well-healing laceration with [address], the skin edges and where the sutures are located there is mild erythema but no increased warmth or purulent drainage. No lymphangitis.
MUSCULOSKELETAL: well perfused.
PSYCH: Normal and appropriate interaction.
Scores
Heart Failure Risk
Heart Failure Risk Score: Not Applicable
Heart Score for Chest Pain Patients
STEMI patient?: Not applicable
Withdrawal Assessment of Alcohol
Withdrawal Assessment Completed?: Not applicable
Course
Vital Signs
Initial and Last Documented VS:
Initial Vital Signs
Temp Pulse Resp BP Pulse Ox
98.6 F 67 20 158/79 99
01/15/25 21:14 01/15/25 21:14 01/15/25 21:14 01/15/25 21:14 01/15/25 21:14
Last Documented Vital Signs
Temp Pulse Resp BP Pulse Ox
98.6 F 66 18 175/90 99
01/15/25 21:14 01/16/25 00:09 01/16/25 00:09 01/16/25 00:09 01/16/25 00:09
MDM/Problems Addressed
Differential Diagnosis Includes:
Routine wound healing/inflammatory changes
Cellulitis
Abscess
Dermatitis
MDM/Problems Addressed:
79-year-old female presenting to the ER for evaluation of a wound to her right lower leg which was sutured earlier in the week following an accidental fall. Based off her presentation I suspect this is just routine wound healing/inflammatory
changes. There is no increased warmth, drainage or significant pain on palpation. I did offer the patient to extend her antibiotic an additional 5 days as well as she can use topical antibiotics and discussed proper wound care with the patient and
she ultimately preferred the additional antibiotic. Patient will have suture removal still next Thursday. Aware of return precautions to the ER.
*Pulse Oximetry
SaO2: 99
Oxygen Mode of Delivery: Room air
Patient hypoxic: no
*Critical Care Note
Total Time (30-74mins, 75-104mins- exclusive of procedures): Not Applicable
ED Attending Note
-
Portions of this chart may have been created with voice recognition software.� Occasional wrong word or��sound alike� substitutions may have occurred due to the inherent limitations of voice recognition software.
Discharge Plan
Departure
Patient Disposition: Home (Routine Discharge)
Date of Disposition: 01/16/25
Time of Disposition: 00:04
Patient with high blood pressure during this ER visit?: Yes
Discharge Problem:
Leg wound, right
Instructions: Wound Care (DC)
Prescriptions:
New
cephalexin 500 mg tablet
500 mg PO BID 5 Days Qty: 10 0RF
No Action
levothyroxine 75 MCG tablet
75 mcg PO DAILY
B-complex with vitamin C 1 CAPLET tablet
1 cap PO DAILY
lisinopril 10 MG tablet
20 mg PO DAILY
ibuprofen 200 MG tablet
200 mg PO DAILYPRN PRN (Reason: MILD PAIN)
biotin 1 mg Capsule
1 mg PO DAILY
pantoprazole [Protonix] 20 mg tablet,delayed release (DR/EC)
20 mg PO DAILY Qty: 20 0RF
penicillin V potassium 500 mg tablet
500 mg PO Q6H 5 Days Qty: 20 0RF
Referrals:
Jong Felix MD [Family Provider, Family Practice]
Interventions
Interventions:
*Risk Screen - Suicide Last Done: 01/15/25 21:14
*General Assessment Last Done: 01/15/25 21:14
*Neglect/Abuse Screening Last Done: 01/15/25 21:14
*ED- Fall Risk Assessment Last Done: 01/15/25 21:14
*ED COVID-19 Vaccine History Last Done: 01/15/25 21:14
*Nursing Disposition Last Done: 01/16/25 00:09
ED-Skin Assessment Last Done: 01/15/25 23:55
Discharge Date and Time
Discharge Date/Time: 01/16/25 00:10
Print Language: GERMAN
[2025-01-16 00:05] VITALS: BMI 24.1
[2025-01-16 00:09] VITALS: BP 175/90
== END 2025-01-16 00:10 | disposition home or self-care (01) ==
LOC: EMR 21:06
PROVIDERS: EMERGENCY PHYSICIAN Emergency Medicine; FAMILY PHYSICIAN Family Medicine
DX: S81.811A Laceration without foreign body, right lower leg, initial encounter (principal); I48.91 Unspecified atrial fibrillation; I10 Essential (primary) hypertension; E03.9 Hypothyroidism, unspecified; K21.9 Gastro-esophageal reflux disease without esophagitis; K27.9 Peptic ulcer, site unspecified, unspecified as acute or chronic, without hemorrhage or perforation; Z82.49 Family history of ischemic heart disease and other diseases of the circulatory system; W22.042A Striking against wall of swimming pool causing other injury, initial encounter
CPT/HCPCS: 99282

== ENCOUNTER 2025-01-30 08:12 | Emergency (ER) | payer MEDICARE, SELFPAY ==
[2025-01-30 08:14] VITALS: BP 191/94
[2025-01-30 08:43] VITALS: BMI 24.8
--- NOTE | 2025-01-30 08:54 | ED.GENMED ---
History of Present Illness
<Marely Fink MD, Resident - Last Filed: 01/30/25 13:16>
General
Chief Complaint: Wound Check/Suture Removal
Source: patient
Time Seen by Provider: 01/30/25 08:38
History of Present Illness
History of Present Illness:
Patient is a 79-year-old female who presents to the emergency department for evaluation of a right lower leg wound that occurred multiple weeks ago and was sutured at the local [facility] urgent care. Initial injury occurred after she
sustained an accidental fall while getting out of the pool. she was started on Keflex by the urgent care center and completed her course prior to her presentation to the emergency department on 01/15/2025. She was due for follow-up with her primary
care provider 1 week after presentation to the emergency department and care provider for the suture removal. She presented to her primary care provider but unfortunately, when the sutures were started to be removed her wound started to open and
the primary care provider stopped. The PCP gave the patient an oral antibiotic and recommended follow-up 1 week after being seen. Unfortunately, the wound continues to show irritation and has not been healing properly prompting the patient to
present to the emergency department today.
Past History
<Marely Fink MD, Resident - Last Filed: 01/30/25 13:16>
Past History
ED Past Medical History: Arrthythmia (afib s/p ablation), GERD, HTN, Hypothyroidism and Other (PUD, hiatal hernia)
ED Past Surgical History: Cardiac (A. fib ablation), Gynecological (Tubal ligation), Tonsilectomy and Other (Hernia repair)
Patient has exhibited threatening behavior?: No
Social History
Tobacco: Non-smoker
Alcohol: Occasional
Drug: None
Personal:
Living: with family
Employment: Employed (Cleaning service)
Family History
Family History: Hypertension
Review of Systems
<Marely Fink MD, Resident - Last Filed: 01/30/25 13:16>
Review of Systems
Constitutional: Reports no symptoms
EENT: Reports no symptoms
Respiratory: Reports no symptoms
Cardiac: Reports no symptoms
ABD/GI: Reports no symptoms
: Reports no symptoms
Musculoskeletal: Reports no symptoms
Skin: Reports other ( Right lower leg pain located near laceration rated at a 2 out of 10 stabbing achy pain)
Neurological: Reports no symptoms
Endocrine: Reports no symptoms
Hematologic/Lymphatic: Reports no symptoms
Psychiatric: Reports no symptoms
Phy Exam
<Marely Fink MD, Resident - Last Filed: 01/30/25 13:16>
General Physical Exam
General Presentation: well appearing and no apparent distress
General age: appears stated age
General Skin: warm, dry and other (Warm and dry, there is a 6 cm curvilinear laceration with [address] on the right lower limb, the skin edges and where the sutures are located there is mild erythema but no increased warmth or purulent
drainage. No lymphangitis.)
General Habitus: normal
General Mental: alert
General Hydration: appears well hydrated
Cardiovascular Exam
Cardiovascular Exam: regular rate/rhythm, no edema, no gallop, no JVD, no murmur and normal peripheral pulses
Pulmonary Exam
Pulmonary Exam: lungs clear, no respiratory distress, no rales, chest non tender, no crackles, no rhonchi, no stridor, no wheezing and no cough
Skin Exam
Skin Exam: other (Warm and dry, there is a 6 cm curvilinear well-healing laceration with [address] on the right lower limb, the skin edges and where the sutures are located there is mild erythema but no increased warmth or purulent
drainage. No lymphangitis.)
Psychiatric Exam
Psychiatric Exam: normal mood/affect
Course
<Marely Fink MD, Resident - Last Filed: 01/30/25 13:16>
Orders/Labs/Results
Orders:
Orders
01/30/25 09:22
Complete Blood Count/With Diff Urgent
Comprehensive Metabolic Panel Urgent
01/30/25 09:29
Clindamycin 600 mg/50 ml [Cleocin] 600 mg in 50 ml IV NOW
01/30/25 09:[address] Non Medication Order As Directed
Physician Order: please apply antibiotic ointment to right lower leg wound and cover with dressing
01/30/25 10:44
Discharge Patient As Directed
Year Pneumococcal vaccine administered: unk
Abnormal Lab Results
01/30/25
09:22
RBC 4.01 L 10^6/uL
(4.20-5.40)
Hct 35.5 L %
(37.0-47.0)
MPV 10.8 H fL
(7.4-10.4)
Absolute Lymphs (auto) 1.0 L 10^3/uL
(1.2-3.4)
Lymphocytes % 17.2 L %
(20.5-51.1)
Sodium 130 L mmol/L
(135-145)
Glucose 107 H mg/dl
(70-99)
01/30/25 09:22
01/30/25 09:22
Vital Signs
Initial and Last Documented VS:
Initial Vital Signs
Temp Pulse Resp BP Pulse Ox
97.7 F 66 18 191/94 100
01/30/25 08:14 01/30/25 08:14 01/30/25 08:14 01/30/25 08:14 01/30/25 08:14
Last Documented Vital Signs
Temp Pulse Resp BP Pulse Ox
97.7 F 66 18 191/94 100
01/30/25 08:14 01/30/25 08:14 01/30/25 08:14 01/30/25 08:14 01/30/25 08:55
<Juanita Hastings MD - Last Filed: 01/30/25 09:17>
Orders/Labs/Results
Orders:
Orders
01/30/25 09:22
Complete Blood Count/With Diff Urgent
Comprehensive Metabolic Panel Urgent
01/30/25 09:29
Clindamycin 600 mg/50 ml [Cleocin] 600 mg in 50 ml IV NOW
01/30/25 09:[address] Non Medication Order As Directed
Physician Order: please apply antibiotic ointment to right lower leg wound and cover with dressing
01/30/25 10:44
Discharge Patient As Directed
Year Pneumococcal vaccine administered: unk
Abnormal Lab Results
01/30/25
09:22
RBC 4.01 L 10^6/uL
(4.20-5.40)
Hct 35.5 L %
(37.0-47.0)
MPV 10.8 H fL
(7.4-10.4)
Absolute Lymphs (auto) 1.0 L 10^3/uL
(1.2-3.4)
Lymphocytes % 17.2 L %
(20.5-51.1)
Sodium 130 L mmol/L
(135-145)
Glucose 107 H mg/dl
(70-99)
01/30/25 09:22
01/30/25 09:22
Vital Signs
Initial and Last Documented VS:
Initial Vital Signs
Temp Pulse Resp BP Pulse Ox
97.7 F 66 18 191/94 100
01/30/25 08:14 01/30/25 08:14 01/30/25 08:14 01/30/25 08:14 01/30/25 08:14
Last Documented Vital Signs
Temp Pulse Resp BP Pulse Ox
97.7 F 66 18 191/94 100
01/30/25 08:14 01/30/25 08:14 01/30/25 08:14 01/30/25 08:14 01/30/25 08:55
<Marely Fink MD, Resident - Last Filed: 01/30/25 13:16>
*Pulse Oximetry
SaO2: 100
Oxygen Mode of Delivery: Room air
Patient hypoxic: no
*Critical Care Note
Total Time (30-74mins, 75-104mins- exclusive of procedures): 60
<Marely Fink MD, Resident - Last Filed: 01/30/25 13:16>
Update Note
Update Note:
Problem List:
Right lower leg wound
suture removal
Plan:
CBC and CMP ordered
suture removal
IV clindamycin
oral clindamycin on discharge
Differential Diagnoses:
irritation due to foreign body
granulomatous skin healing
superficial skin infection/cellulitis
Radiology: not applicable
EKG: not applicable
Labs:
CBC and CMP
Updates:
Wound appears to be healing but unfortunately remains inflamed likely due to long-term foreign body (sutures). 11 sutures removed
IV clindamycin for infection of the skin
patient to be sent home with oral clindamycin
ED Attending Note
<Marely Fink MD, Resident - Last Filed: 01/30/25 13:16>
-
Portions of this chart may have been created with voice recognition software.� Occasional wrong word or��sound alike� substitutions may have occurred due to the inherent limitations of voice recognition software.
<Jaunita Hastings MD - Last Filed: 01/30/25 09:17>
ED Attending Note
Patient seen and examined by attending physician: Yes
I performed a history and physical exam of patient and discussed management with resident, I reviewed resident's note and agree with documented findings and plan of care.: Yes
ED Attending Note:
Patient appears well and comfortable. She is smiling and conversational. She denies fevers and chills. Right lower leg wound appears erythematous with drainage. 11 Sutures were removed given signs of infection and the fact that sutures have been
in for 3 weeks. Wound will be dressed with antibiotic ointment. Additionally, patient will be given IV antibiotic and will likely be discharged on oral antibiotics. There is no sign of sepsis. Area of erythema is limited to area immediately
surrounding wound.no sign of lymphangitis.
Discharge Plan
Departure
Patient Disposition: Home (Routine Discharge)
Date of Disposition: 01/30/25
Time of Disposition: 10:33
Patient with high blood pressure during this ER visit?: Yes
Discharge Problem:
Leg wound, right
Instructions: Stitches Removal, Wound Care (DC)
Prescriptions:
New
clindamycin HCl [Cleocin HCl] 300 mg capsule
300 mg PO TID Qty: 15 0RF
No Action
levothyroxine 75 MCG tablet
75 mcg PO DAILY
B-complex with vitamin C 1 CAPLET tablet
1 cap PO DAILY
lisinopril 10 MG tablet
20 mg PO DAILY
ibuprofen 200 MG tablet
200 mg PO DAILYPRN PRN (Reason: MILD PAIN)
biotin 1 mg Capsule
1 mg PO DAILY
pantoprazole [Protonix] 20 mg tablet,delayed release (DR/EC)
20 mg PO DAILY Qty: 20 0RF
penicillin V potassium 500 mg tablet
500 mg PO Q6H 5 Days Qty: 20 0RF
cephalexin 500 mg tablet
500 mg PO BID 5 Days Qty: 10 0RF
Referrals:
Jong Felix MD [Family Provider, Family Practice]
Interventions
Interventions:
*Risk Screen - Suicide Last Done: 01/30/25 08:14
*General Assessment Last Done: 01/30/25 08:14
*Neglect/Abuse Screening Last Done: 01/30/25 09:30
*ED- Fall Risk Assessment Last Done: 01/30/25 08:43
*ED COVID-19 Vaccine History Last Done: 01/30/25 08:43
*Nursing Disposition Last Done: 01/30/25 10:56
ED-Skin Assessment Last Done: 01/30/25 08:43
Discharge Date and Time
Discharge Date/Time: 01/30/25 10:57
Print Language: TAIWANESE
[2025-01-30] MEDS: CLEOCIN 50 IV (09:38)
[2025-01-30 09:39] LABS: Hematocrit 35.5 % (37.0-47.0); Hemoglobin 12.3 g/dL (12.0-16.0); Mean Corp Hgb Conc. 34.6 g/dL (33.0-37.0); Mean Corpuscular Volume 88.5 fL (81.0-99.0); Nucleated Red Blood Cells % 0 %; Platelet Count 199 10^3/uL (130-400); Red Cell Dist. Width 12.3 % (11.5-14.5)
[2025-01-30 09:44] LABS: ALT (SGPT) 14 U/L (0-35); AST (SGOT) 22 U/L (14-36); Albumin 4.3 g/dl (3.5-5.0); Alkaline Phosphatase 60 U/L (38-126); Blood Urea Nitrogen 16 mg/dl (7-17); Calcium 9.9 mg/dl (8.4-10.2); Carbon Dioxide 26 mmol/L (22-30); Chloride 101 mmol/L (98-107); Estimated Creatinine Clearance 48 ml/min; Glucose 107 mg/dl (70-99); Potassium 4.6 mmol/L (3.5-5.1); Sodium 130 mmol/L (135-145); Total Protein 7.0 g/dl (6.3-8.2); eGFR > 60.00
== END 2025-01-30 10:57 | disposition home or self-care (01) ==
LOC: EMR 08:12
PROVIDERS: EMERGENCY PHYSICIAN Emergency Medicine; FAMILY PHYSICIAN Family Medicine
DX: S81.801A Unspecified open wound, right lower leg, initial encounter (principal); L53.8 Other specified erythematous conditions; W19.XXXA Unspecified fall, initial encounter; Y92.34 Swimming pool (public) as the place of occurrence of the external cause; Z48.02 Encounter for removal of sutures; I48.91 Unspecified atrial fibrillation; I10 Essential (primary) hypertension; E03.9 Hypothyroidism, unspecified; K21.9 Gastro-esophageal reflux disease without esophagitis; Z87.11 Personal history of peptic ulcer disease; Z88.1 Allergy status to other antibiotic agents; Z88.2 Allergy status to sulfonamides
CPT/HCPCS: 99284; 96374; 80053; 85025